=== PATIENT | female | born 1975 | race Caucasian/White ===

== ENCOUNTER 2019-02-23 16:12 | Emergency (ER) | payer MEDICAID ==
[~2019-02-23] VITALS: Ht 170.2 cm; Wt 88.5 kg
[2019-02-23 16:30] VITALS: BP 136/92
--- NOTE | 2019-02-23 16:52 | NUR ---
DENIES LEFT EAR PAIN.
--- NOTE | 2019-02-23 16:52 | NUR ---
C/O CLEAR PRODUCTIVE COUGH SINCE TUESDAY W/ INTERMITTENT LT EAR PAIN. TOOK THERA FLU W/O RELIEF ,AWAKE ,ALERT , AMBULATORY WITH STEADY GAIT , AFEBRILE , CBS , SCE. PMHX DENIES PREVOIUS ILLNESS.
--- NOTE | 2019-02-23 16:53 | NUR ---
SEFERINO BECERRA AT BEDSIDE.
[2019-02-23 17:29] VITALS: BP 132/89
--- NOTE | 2019-02-23 17:29 | NUR ---
Patient discharged with v/s stable. Written and verbal after care instructions given and explained REGARDING UPPER RESP INFECTION. Patient alert, oriented and verbalized understanding of instructions. Ambulatory with steady gait. All questions addressed prior to discharge. ID band removed. Patient advised to follow up with PMD. Rx of AZITHROMYCIN AND IBUPROFEN given. Patient educated on indication of medication including possible reaction and side effects. Opportunity to ask questions provided and answered. PT DISCHARGED BY DANIE TEJEDA
== END 2019-02-23 17:27 | disposition home or self-care (01) ==
LOC: MED 16:12
DX: J06.9 Acute upper respiratory infection, unspecified (principal); Z20.818 Contact with and (suspected) exposure to other bacterial communicable diseases
CPT/HCPCS: 99283

== ENCOUNTER 2020-07-22 18:25 | Emergency (ER) | payer MEDICAID ==
[~2020-07-22] VITALS: Ht 167.6 cm; Wt 76.2 kg
[2020-07-22 18:37] VITALS: BP 134/89
[2020-07-22 19:24] VITALS: BP 160/83
== END 2020-07-22 19:40 | disposition home or self-care (01) ==
LOC: MED 18:25
DX: R10.9 Unspecified abdominal pain (principal); L90.5 Scar conditions and fibrosis of skin; Z98.890 Other specified postprocedural states
CPT/HCPCS: 99281

== ENCOUNTER 2020-10-21 13:14 | Emergency (ER) | payer MEDICAID ==
[~2020-10-21] VITALS: Ht 167.6 cm; Wt 77.1 kg
[2020-10-21 13:19] VITALS: BP 127/93
--- NOTE | 2020-10-21 14:42 | NUR ---
45 YEAR OLD FEMALE COMPLAINS OF BILATERAL BREAST RASH X YESTERDAY. PT STATES RASH IS RED AND ITCHY. PT ALSO COMPLAINS OF VAGINAL DISCOMFORT X 3 DAYS AGO. PT STATES THAT VAGINAL DISCOMFORT ASSOCIATED WITH URINARY BURNING, YELLOW DISCHARGE. PMH - DENIES Addendum: 10/21/20 at 1508 by [facility] Patient reports vaginal discharge without pain or bleeding. States intermittent stinging pain, 2/10 upon peeing. Denies pain at this time. Denies fever, chills, SOB, chest pain. Reports calamine with minor relief. LMP: 09/21/20 Sx: C-sections, hernia repair
--- NOTE | 2020-10-21 15:00 | NUR ---
UA and culture swabs walked to lab, handed to CPT. Amrita
--- NOTE | 2020-10-21 15:00 | NUR ---
Female Side Seam Machine Operator accompanied female patient for Pelvic Exam.
[2020-10-21] MEDS ORDERED: DOXY-690 PO (15:45)
[2020-10-21] MEDS ORDERED: cefTRIAXone 1,000 MG in LIDOCAINE MPF 1% 2.1 ML IM ONE (15:45)
[2020-10-21] MEDS ORDERED: LIDOCAINE MPF 1% 5 ML ONE (16:24)
[2020-10-21] MEDS ORDERED: cefTRIAXone 1,000 MG VIAL ONE (16:24)
--- NOTE | 2020-10-21 16:30 | NUR ---
Patient discharged with v/s stable. Written and verbal after care instructions given and explained. Patient alert, oriented and verbalized understanding of instructions. Ambulatory with steady gait. All questions addressed prior to discharge. ID band removed. Patient advised to follow up with PMD. Rx of Doxycycline Hyclate given. Patient educated on indication of medication including possible reaction and side effects. Opportunity to ask questions provided and answered.
[2020-10-21 18:14] LABS: BILIRUBIN,URINE NEGATIVE (NEGATIVE); BLOOD, URINE TRACE-I (NEGATIVE); LEUKOCYTE ESTERASE ,URINE 2+ (NEGATIVE); NITRITE, URINE POSITIVE (NEGATIVE); PH,URINE 5.5 (5.0-9.0); UGLUCOSE NEGATIVE (NEGATIVE)
[2020-10-21 18:17] LABS: APPEARANCE,URINE CLOUDY (CLEAR); COLOR,URINE YELLOW (YELLOW); RBC,URINE 0-5 /HPF (0-5)
== END 2020-10-21 16:30 | disposition home or self-care (01) ==
LOC: MED 13:14
DX: N39.0 Urinary tract infection, site not specified (principal); L30.9 Dermatitis, unspecified; Z11.3 Encounter for screening for infections with a predominantly sexual mode of transmission
CPT/HCPCS: 36415; 81001; 87070; 87086; 87205; 87210; 87491; 96372; 99284; J0696; J2001

== ENCOUNTER 2020-11-01 08:25 | Emergency (ER) | payer MEDICAID ==
[~2020-11-01] VITALS: Ht 170.2 cm; Wt 78.0 kg
[~2020-11-01 08:25] MED LIST: DOXY-690 PO
[2020-11-01 08:28] VITALS: BP 118/82
--- NOTE | 2020-11-01 08:35 | NUR ---
Patient ambulated with steady gait to bed 7
--- NOTE | 2020-11-01 08:41 | NUR ---
45 Y/O FEMALE C/O LOWER ABD PAIN X1 WEEK AND PT STATES SHE HAS A "BUMP" TO LOWER ABD. THE PAIN WORSENS WITH MENSTRUAL CYCLE AND STATES "IT FLARES UP." PT STATES 07/14 PAIN. TENDER TO TOUCH. SKIN WARM AND DRY. MEDHX: , UTI NKA Addendum: 11/01/20 at 0844 by [email or web address] PT REPORTS NAUSEA/VOMITING/DIARRHEA PRIOR TO ARRIVAL
--- NOTE | 2020-11-01 08:43 | NUR ---
DR JONES AT BEDSIDE EXAMINING PT
--- NOTE | 2020-11-01 08:48 | NUR ---
ULTRASOUND AT BEDSIDE
[2020-11-01] MEDS ORDERED: KETOROLAC 60 MG/2 ML VIAL IM ONE (08:55)
[2020-11-01 09:57] LABS: APPEARANCE,URINE CLEAR (CLEAR); BILIRUBIN,URINE NEGATIVE (NEGATIVE); BLOOD, URINE NEGATIVE (NEGATIVE); COLOR,URINE YELLOW (YELLOW); LEUKOCYTE ESTERASE ,URINE NEGATIVE (NEGATIVE); NITRITE, URINE NEGATIVE (NEGATIVE); UGLUCOSE NEGATIVE (NEGATIVE)
[2020-11-01] MEDS ORDERED: IBUP-2213 PO ×2 (10:14→10:19)
[2020-11-01] MEDS ORDERED: ACET-8386 PO ×2 (10:14→10:19)
[2020-11-01 10:26] VITALS: BP 118/82
--- NOTE | 2020-11-01 10:26 | NUR ---
Patient discharged with v/s stable. Written and verbal after care instructions given and explained. Patient alert, oriented and verbalized understanding of instructions. Ambulatory with steady gait. All questions addressed prior to discharge. ID band removed. Patient advised to follow up with PMD. Rx of IBUPROFEN AND HYDROCODONE/ACETAMINOPHEN given. Patient educated on indication of medication including possible reaction and side effects. Opportunity to ask questions provided and answered.
== END 2020-11-01 10:26 | disposition home or self-care (01) ==
LOC: MED 08:25
DX: D25.9 Leiomyoma of uterus, unspecified (principal); Z79.899 Other long term (current) drug therapy; Z98.890 Other specified postprocedural states
CPT/HCPCS: 76830; 81003; 81025; 96372; 99284; J1885; Q0092

== ENCOUNTER 2020-12-15 10:37 | Emergency (ER) | payer MEDICAID ==
[~2020-12-15] VITALS: Ht 167.6 cm; Wt 79.4 kg
[~2020-12-15 10:37] MED LIST changes: +ACET-8386 PO; +IBUP-2213 PO
--- NOTE | 2020-12-15 11:02 | NUR ---
PT TAKEN TO ER BED 4.
--- NOTE | 2020-12-15 12:12 | NUR ---
MD BARROS AT BEDSIDE EVALUATING PATIENT.
--- NOTE | 2020-12-15 12:13 | NUR ---
45 Y/O FEMALE C/O DYSURIA, WHITE DISCHARGE AND FLANK PAIN 7/10 RADIATES TO LEFT SIDE X3 WEEKS. PT STATES +N/-V, DENIES FEVER/CHILLS. CLAIMS SHE DOES NOT VOID WHEN SHE FEELS THE URGE. DENIES HEMATURIA. PMH: CHRONIC UTI, HTN ALLERGIES: DENIES NO HOME MEDS
--- NOTE | 2020-12-15 12:13 | NUR ---
SEFERINO BARROS AT BEDSIDE ASSESSING PT
[2020-12-15] MEDS ORDERED: PYR100 PO (12:16)
[2020-12-15] MEDS ORDERED: ACET-10509 PO (12:16)
[2020-12-15] MEDS ORDERED: SULF-59 PO (12:16)
[2020-12-15] MEDS ORDERED: FLUC150T PO (12:17)
[2020-12-15 12:35] VITALS: BP 120/75
--- NOTE | 2020-12-15 12:35 | NUR ---
Patient discharged with v/s stable. Written and verbal after care instructions given and explained. Patient alert, oriented and verbalized understanding of instructions. Ambulatory with steady gait. All questions addressed prior to discharge. ID band removed. Patient advised to follow up with PMD. Rx of DIFLUCAN/BACTRIM DS/TYLENOL EXTRA STRENGTH/PYRIDIUM given. Patient educated on indication of medication including possible reaction and side effects. Opportunity to ask questions provided and answered.
== END 2020-12-15 12:35 | disposition home or self-care (01) ==
LOC: MED 10:37
DX: N39.0 Urinary tract infection, site not specified (principal); B37.9 Candidiasis, unspecified; Z79.899 Other long term (current) drug therapy
CPT/HCPCS: 81002; 81025; 99283

== ENCOUNTER 2021-02-11 15:40 | Emergency (ER) | payer MEDICAID ==
[~2021-02-11] VITALS: Ht 167.6 cm; Wt 68.0 kg
[~2021-02-11 15:40] MED LIST changes: +ACET-10509 PO; +FLUC150T PO; +PYR100 PO; +SULF-59 PO
[2021-02-11 15:57] VITALS: BP 154/103
[2021-02-11 17:01] LABS: BASOPHILS % (AUTO) 0.4 % (0.0-2.0); EOSINOPHILS % (AUTO) 0.6 % (0.0-4.0); HEMATOCRIT 42.5 % (36-48); HEMOGLOBIN 14.3 g/dL (12.0-16.0); LYMPHOCYTES # (AUTO) 1.5 K/uL (2.5-16.5); LYMPHOCYTES % (AUTO) 19.1 % (20.5-51.1); MEAN CORPUSCULAR HEMOGLOBIN 31 pg (27-31); MEAN CORPUSCULAR HGB CONC 34 g/dL (33-37); MEAN CORPUSCULAR VOLUME 92.9 fL (80-94); MONOCYTES # (AUTO) 0.5 K/uL (0.8-1.0); MONOCYTES % (AUTO) 6.1 % (1.7-9.3); NEUTROPHILS # (AUTO) 5.7 K/uL (1.8-7.7); NEUTROPHILS % (AUTO) 73.8 % (42.2-75.2); PLATELET COUNT (AUTO) 392 K/uL (140-450); RED BLOOD CELL COUNT(AUTO) 4.58 MIL/uL (4.20-5.40); RED CELL DISTRIBUTION WIDTH 13.9 % (11.6-13.7); WHITE BLOOD COUNT (AUTO) 7.7 K/uL (4.8-10.8)
[2021-02-11 17:35] LABS: ALBUMIN 3.7 g/dL (3.4-5.0); CREATININE 0.6 mg/dL (0.6-1.3); POTASSIUM 3.7 mmol/L (3.5-5.1); TOTAL BILIRUBIN 0.3 mg/dL (0.0-1.0)
[2021-02-11 17:41] LABS: ANION GAP 12.2 (8-16); CARBON DIOXIDE 25.5 mmol/L (21-32)
--- NOTE | 2021-02-11 17:54 | NUR ---
Female Residential Treatment Counselor accompanied female patient for Pelvic Exam. WET MOUNT AND CULTURE SWAB COLLECTED AND HANDED TO MAKEUP EDITOR
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
--- NOTE | 2021-02-11 18:01 | NUR ---
Patient appears to be resting comfortably in bed. Vital Signs within normal limits. Respirations even and unlabored.
[2021-02-11] MEDS ORDERED: FLUC150T PO (18:39)
[2021-02-11] MEDS ORDERED: PYR100 PO (18:39)
[2021-02-11] MEDS ORDERED: ACET-10509 PO (18:39)
[2021-02-11] MEDS ORDERED: SULF-59 PO (18:39)
[2021-02-11 19:01] VITALS: BP 142/80
--- NOTE | 2021-02-11 19:02 | NUR ---
Patient discharged with v/s stable. Written and verbal after care instructions given and explained. Patient alert, oriented and verbalized understanding of instructions. Ambulatory with steady gait. All questions addressed prior to discharge. ID band removed. Patient advised to follow up with PMD. Rx of BACTRIM, DIFLUCAN, AND PYRIDIUM given. Patient educated on indication of medication including possible reaction and side effects. Opportunity to ask questions provided and answered.
== END 2021-02-11 19:00 | disposition home or self-care (01) ==
LOC: MED 15:40
DX: N39.0 Urinary tract infection, site not specified (principal); I10 Essential (primary) hypertension; Z98.890 Other specified postprocedural states; Z79.899 Other long term (current) drug therapy; Z79.2 Long term (current) use of antibiotics; Z79.891 Long term (current) use of opiate analgesic; Z79.1 Long term (current) use of non-steroidal anti-inflammatories (NSAID)
CPT/HCPCS: 36415; 80053; 81002; 81025; 85025; 86592; 87070; 87210; 87491; 99284

== ENCOUNTER 2021-05-18 17:26 | Emergency (ER) | payer MEDICAID, OTHER ==
[~2021-05-18] VITALS: Ht 167.6 cm; Wt 71.2 kg
[2021-05-18 17:35] VITALS: BP 119/96
--- NOTE | 2021-05-18 17:42 | NUR ---
PT AMBULATED TO ER BED 4 WITH A STEADY GAIT.
--- NOTE | 2021-05-18 17:59 | NUR ---
45 Y/O FEMALE C/O UTI SYMPTOMS X2 DAYS, STATING TODAY ITS BEEN WORSENING. REPORTS TAKING IBUPROFEN WITH MILD RELIEF, DENIES FEVERS, CHILLS. DENIES HEMATURIA, DISCHARGE. DENIES PMH NKA
[2021-05-18] MEDS ORDERED: PYR100 PO (18:46)
[2021-05-18] MEDS ORDERED: IBUP-2213 PO (18:46)
[2021-05-18] MEDS ORDERED: CEPH-588 PO (18:46)
[2021-05-18 18:52] LABS: APPEARANCE,URINE CLEAR (CLEAR); BILIRUBIN,URINE NEGATIVE (NEGATIVE); BLOOD, URINE TRACE-I (NEGATIVE); COLOR,URINE YELLOW (YELLOW); LEUKOCYTE ESTERASE ,URINE NEGATIVE (NEGATIVE); NITRITE, URINE NEGATIVE (NEGATIVE); UGLUCOSE NEGATIVE (NEGATIVE)
[2021-05-18 19:01] VITALS: BP 119/96
--- NOTE | 2021-05-18 19:02 | NUR ---
Patient discharged with v/s stable. Written and verbal after care instructions given FOR URINARY TRACT INFECTION and explained. Patient alert, oriented and verbalized understanding of instructions. Ambulatory with steady gait. All questions addressed prior to discharge. ID band removed. Patient advised to follow up with PMD. Rx of KEFLEX, IBUPROFEN, AND PYRIDIUM given. Patient educated on indication of medication including possible reaction and side effects. Opportunity to ask questions provided and answered.
[2021-05-18 19:10] LABS: RBC,URINE 0-5 /HPF (0-5); WBC,URINE 0-5 /HPF (0-5)
== END 2021-05-18 19:01 | disposition home or self-care (01) ==
LOC: MED 17:26
DX: N39.0 Urinary tract infection, site not specified (principal); I10 Essential (primary) hypertension; Z79.899 Other long term (current) drug therapy
CPT/HCPCS: 81001; 99283

== ENCOUNTER 2021-07-09 20:22 | Emergency (ER) | payer OTHER ==
[~2021-07-09] VITALS: Ht 167.6 cm; Wt 69.1 kg
[~2021-07-09 20:22] MED LIST changes: +CEPH-588 PO
[2021-07-09 20:37] VITALS: BP 112/79
--- NOTE | 2021-07-09 20:42 | NUR ---
pt sent to lobby.
--- NOTE | 2021-07-09 21:12 | NUR ---
PT TAKEN TO XRAY
--- NOTE | 2021-07-09 21:20 | NUR ---
PT RETURN FROM RAD
--- NOTE | 2021-07-09 21:57 | NUR ---
PT TAKEN TO BED 7
--- NOTE | 2021-07-09 22:16 | NUR ---
Dr. Corral examining patient.
[2021-07-09] MEDS ORDERED: LIDOCAINE 2% 1000 MG/50 ML VIAL INJ ONE (22:30)
--- NOTE | 2021-07-09 23:44 | NUR ---
PT AMBULATED TO BATHROOM
--- NOTE | 2021-07-09 23:45 | NUR ---
45 Y/O F BIB SELF FOR L KNEE PAIN X 3 WEEKS . PT STATES 10/10 PAIN . PT HAD A PREVIOUS KNEE SURGERY BUT HAS BEEN AGGRAVATED AT WORK DUE TO HIGH PHYSICAL ACTIVITY. PT HAS BEEN TAKING TYLENOL AND IBRUPROFEN FOR PAIN. PT STATES PAIN WAS TOO MUCH SHE HAD TO LEAVE WORK. DENIES N/V/D; SKIN IS PINK/WARM/DRY; AAOX4 WITH EVEN AND STEADY GAIT; LUNGS CLEAR BL; HR EVEN AND REGULAR; PT DENIES ANY FEVER, CP, SOB, OR COUGH AT THIS TIME; VSS; PATIENT POSITIONED FOR COMFORT; HOB ELEVATED; BEDRAILS UP X2; BED DOWN.
--- NOTE | 2021-07-10 00:28 | NUR ---
HERMILO IN ROOM FOR PROCEDURE
[2021-07-10] MEDS ORDERED: IBUP-2218 PO (00:37)
== END 2021-07-10 00:58 | disposition home or self-care (01) ==
LOC: MED 20:22
DX: M25.462 Effusion, left knee (principal); I10 Essential (primary) hypertension; Z79.1 Long term (current) use of non-steroidal anti-inflammatories (NSAID); Z79.899 Other long term (current) drug therapy; Z79.2 Long term (current) use of antibiotics; Z79.891 Long term (current) use of opiate analgesic
CPT/HCPCS: 20610; 73562; 99283; J2001

== ENCOUNTER 2021-09-03 06:30 | Emergency (ER) | payer OTHER ==
[~2021-09-03] VITALS: Ht 170.2 cm; Wt 68.0 kg
[~2021-09-03 06:30] MED LIST changes: +IBUP-2218 PO
[2021-09-03 06:39] VITALS: BP 141/56
--- NOTE | 2021-09-03 06:50 | NUR ---
TO BED 12 WITH C/O UTI SX X 1 WEEK, PMHx: DENIES
--- NOTE | 2021-09-03 06:50 | NUR ---
TO BED 12 FROM TRIAGE. PT UNABLE TO PROVIDE URINE SAMPLE AT THIS TIME
--- NOTE | 2021-09-03 06:52 | NUR ---
VOIDED VERY SMALL AMT OF URINE. DIPPED AND HCG IN PROGRESS
--- NOTE | 2021-09-03 07:07 | NUR ---
DR. JONES AT BEDSIDE EVALUATING PT.
[2021-09-03] MEDS ORDERED: ONDA8TAB87 PO (07:17)
[2021-09-03] MEDS ORDERED: IBUP-2213 PO (07:17)
[2021-09-03] MEDS ORDERED: CIPR500T4 PO (07:17)
[2021-09-03] MEDS ORDERED: PHEN-1877 PO (07:17)
[2021-09-03 07:20] VITALS: BP 132/68
--- NOTE | 2021-09-03 07:20 | NUR ---
received report from manager night rn. patient calm and resting. urine collected for urine culture.
--- NOTE | 2021-09-03 07:22 | NUR ---
Patient discharged with v/s stable. Written and verbal after care instructions given and explained. Patient alert, oriented and verbalized understanding of instructions. Ambulatory with steady gait. All questions addressed prior to discharge. ID band removed. Patient advised to follow up with PMD. Rx of ibuprofen, cipro, pyridium, and zofran given. Patient educated on indication of medication including possible reaction and side effects. Opportunity to ask questions provided and answered.
== END 2021-09-03 07:21 | disposition home or self-care (01) ==
LOC: MED 06:30
DX: N39.0 Urinary tract infection, site not specified (principal); R11.2 Nausea with vomiting, unspecified; Z79.899 Other long term (current) drug therapy; Z98.890 Other specified postprocedural states
CPT/HCPCS: 81002; 81025; 87086; 99283

== ENCOUNTER 2021-10-03 19:59 | Emergency (ER) | payer OTHER ==
[~2021-10-03] VITALS: Ht 170.2 cm; Wt 68.0 kg
[~2021-10-03 19:59] MED LIST changes: +CIPR500T4 PO; +ONDA8TAB87 PO; +PHEN-1877 PO
[2021-10-03 20:02] VITALS: BP 122/73
[2021-10-03] MEDS ORDERED: IBUPROFEN 600 MG TAB PO ONE (20:10)
--- NOTE | 2021-10-03 20:18 | NUR ---
Patient taken to bed 6 via wheel chair.
--- NOTE | 2021-10-03 20:20 | NUR ---
Urine sample collected and sent to lab.
--- NOTE | 2021-10-03 20:25 | NUR ---
X-Ray at bedside.
[2021-10-03 20:26] LABS: APPEARANCE,URINE CLEAR (CLEAR); BILIRUBIN,URINE 1+ (NEGATIVE); BLOOD, URINE TRACE-I (NEGATIVE); COLOR,URINE YELLOW (YELLOW); LEUKOCYTE ESTERASE ,URINE NEGATIVE (NEGATIVE); NITRITE, URINE NEGATIVE (NEGATIVE); UGLUCOSE NEGATIVE (NEGATIVE)
--- NOTE | 2021-10-03 20:31 | NUR ---
46 bib by mom for rt big toe pain from fall x 2 hours. pt stepped in hole and hit cement. pt denies hitting head. only hit rt toe and left knee. pt states it wa throbbin and now feels achy. pt denies any bleeding. ; PATIENT STATES PAIN OF 8/10 AT THIS TIME; pt denies pmh pt denies allergies DENIES N/V/D; SKIN IS PINK/WARM/DRY; AAOX4 WITH EVEN GAIT WITH COMPROMISED RT TOE. LUNGS CLEAR BL; HR EVEN AND REGULAR; PT DENIES ANY FEVER, CP, SOB, OR COUGH AT THIS TIME VSS; PATIENT POSITIONED FOR COMFORT; HOB ELEVATED; BEDRAILS UP X2;
[2021-10-03 20:42] LABS: RBC,URINE 0-5 /HPF (0-5)
[2021-10-03] MEDS ORDERED: PYR100 PO (20:56)
[2021-10-03] MEDS ORDERED: NITR100C7 PO (20:56)
[2021-10-03] MEDS ORDERED: IBUP-1842 PO (20:56)
--- NOTE | 2021-10-03 20:58 | NUR ---
Dr. Brandt explained results and treatment plans.
[2021-10-03 21:19] VITALS: BP 124/73
--- NOTE | 2021-10-03 21:19 | NUR ---
Patient discharged with v/s stable. Written and verbal after care instructions given and explained for foot contusion. Patient alert, oriented and verbalized understanding of instructions. Ambulatory with steady gait. All questions addressed prior to discharge. ID band removed. Patient advised to follow up with PMD. Rx of Ibruprofen, Macrobid and Pyridium given. Patient educated on indication of medication including possible reaction and side effects. Opportunity to ask questions provided and answered.
--- NOTE | 2021-10-03 21:26 | NUR ---
The patient's care was reviewed and supervised by Ashlee Jimenez RN.
== END 2021-10-03 21:19 | disposition home or self-care (01) ==
LOC: MED 19:59
DX: S90.111A Contusion of right great toe without damage to nail, initial encounter (principal); N39.0 Urinary tract infection, site not specified; X58.XXXA Exposure to other specified factors, initial encounter; Y93.89 Activity, other specified; Y92.89 Other specified places as the place of occurrence of the external cause; Y99.8 Other external cause status
CPT/HCPCS: 73660; 81001; 81025; 87086; 99284

== ENCOUNTER 2021-11-08 23:34 | Emergency (ER) | payer OTHER ==
[~2021-11-08] VITALS: Ht 170.2 cm; Wt 70.3 kg
[~2021-11-08 23:34] MED LIST changes: +IBUP-1842 PO; +NITR100C7 PO
[2021-11-09] MEDS ORDERED: PHEN-1877 PO (00:02)
[2021-11-09] MEDS ORDERED: CEPH-588 PO (00:02)
[2021-11-09 00:14] VITALS: BP 138/84
--- NOTE | 2021-11-09 00:18 | NUR ---
TO LOBBY FOLLOWING TRIAGE. UA WAS OBTAINED
--- NOTE | 2021-11-09 00:24 | NUR ---
Patient discharged with v/s stable. Written and verbal after care instructions given and explained. Patient alert, oriented and verbalized understanding of instructions. Ambulatory with steady gait. All questions addressed prior to discharge. ID band removed. Patient advised to follow up with PMD. Rx of PYRIDUIM, KEFLEX given. Patient educated on indication of medication including possible reaction and side effects. Opportunity to ask questions provided and answered.
[2021-11-09 00:48] VITALS: BP 138/84
--- NOTE | 2021-11-09 00:48 | NUR ---
Patient discharged with v/s stable. Written and verbal after care instructions given DYSURIA and explained. Patient alert, oriented and verbalized understanding of instructions. with steady gait. All questions addressed prior to discharge. ID band removed. Patient advised to follow up with PMD. Rx of KEFLEX, AND PYRIDIUM given.
== END 2021-11-09 00:48 | disposition home or self-care (01) ==
LOC: MED 23:34
DX: N39.0 Urinary tract infection, site not specified (principal); I10 Essential (primary) hypertension; Z79.899 Other long term (current) drug therapy
CPT/HCPCS: 81002; 81025; 99283

== ENCOUNTER 2021-11-25 01:40 | Emergency (ER) | payer OTHER ==
[~2021-11-25] VITALS: Ht 170.2 cm; Wt 70.8 kg
[2021-11-25 01:56] VITALS: BP 134/68
[2021-11-25] MEDS ORDERED: EMTRICITABINE/TENOFOVIR 200-300MG 1 TAB PO SCH (02:30)
[2021-11-25] MEDS ORDERED: EMTR1TAB12 PO (04:02)
--- NOTE | 2021-11-25 04:10 | NUR ---
LEFT WITHOUT RECEIVING DT, AND ACI.
[2021-11-26 08:08] LABS: HEPATITIS A ANTIBODY IGM Negative (Negative); HEPATITIS B CORE AB TOTAL Negative (Negative); HEPATITIS B SURFACE ANTIBODY Non Reactive (.); HEPATITIS B SURFACE ANTIGEN Negative (Negative)
== END 2021-11-25 04:10 | disposition home or self-care (01) ==
LOC: MED 01:40
DX: L29.9 Pruritus, unspecified (principal); I10 Essential (primary) hypertension; Z79.899 Other long term (current) drug therapy; W46.1XXA Contact with contaminated hypodermic needle, initial encounter; Y93.89 Activity, other specified; Y92.89 Other specified places as the place of occurrence of the external cause; Y99.8 Other external cause status
CPT/HCPCS: 36415; 86704; 86706; 86708; 86709; 86803; 87340; 90715; 99283

== ENCOUNTER 2022-02-08 11:10 | Emergency (ER) | payer OTHER ==
[~2022-02-08] VITALS: Ht 170.2 cm; Wt 78.5 kg
[~2022-02-08 11:10] MED LIST changes: +EMTR1TAB12 PO
[2022-02-08 11:26] VITALS: BP 112/71
--- NOTE | 2022-02-08 11:46 | NUR ---
CURTIS AND FLU SWABS COLLECTED
[2022-02-08] MEDS ORDERED: CEPH-588 PO (13:58)
[2022-02-08] MEDS ORDERED: PROM118S5 PO (13:58)
[2022-02-08] MEDS ORDERED: PYR100 PO (13:58)
[2022-02-08] MEDS ORDERED: TAM75 PO (13:59)
--- NOTE | 2022-02-08 14:10 | NUR ---
Patient discharged with v/s stable. Written and verbal after care instructions given and explained. Patient alert, oriented and verbalized understanding of instructions. Ambulatory with steady gait. All questions addressed prior to discharge. ID band removed. Patient advised to follow up with PMD. Rx of KEFLEX, PYRIDIUM given. Patient educated on indication of medication including possible reaction and side effects. Opportunity to ask questions provided and answered.
[2022-02-08 17:11] LABS: APPEARANCE,URINE SL CLOUDY (CLEAR); BILIRUBIN,URINE NEGATIVE (NEGATIVE); BLOOD, URINE NEGATIVE (NEGATIVE); COLOR,URINE YELLOW (YELLOW); LEUKOCYTE ESTERASE ,URINE 2+ (NEGATIVE); NITRITE, URINE NEGATIVE (NEGATIVE); PH,URINE 6.5 (5.0-9.0); UGLUCOSE NEGATIVE (NEGATIVE)
[2022-02-08 17:29] LABS: OTHER CASTS, URINE None Seen /LPF (None Seen); RBC,URINE 0-5 /HPF (0-5)
== END 2022-02-08 14:09 | disposition home or self-care (01) ==
LOC: MED 11:10
DX: J10.1 Influenza due to other identified influenza virus with other respiratory manifestations (principal); Z20.822 Contact with and (suspected) exposure to COVID-19; N39.0 Urinary tract infection, site not specified; I10 Essential (primary) hypertension; Z79.899 Other long term (current) drug therapy
CPT/HCPCS: 81001; 81025; 87086; 99283

== ENCOUNTER 2022-04-17 19:49 | Emergency (ER) | payer BC, OTHER ==
[~2022-04-17] VITALS: Ht 170.2 cm; Wt 80.7 kg
[~2022-04-17 19:49] MED LIST changes: -ACET-8386 PO; +ACET-8905 PO; +PROM118S5 PO; +TAM75 PO
[2022-04-17 20:00] VITALS: BP 109/55
--- NOTE | 2022-04-17 20:03 | NUR ---
TO LOBBY A/W BED AMBULATORY
--- NOTE | 2022-04-17 20:24 | NUR ---
PT TO BED #12
--- NOTE | 2022-04-17 20:40 | NUR ---
UA TO LAB
[2022-04-17 21:00] LABS: APPEARANCE,URINE CLEAR (CLEAR); BILIRUBIN,URINE NEGATIVE (NEGATIVE); BLOOD, URINE NEGATIVE (NEGATIVE); COLOR,URINE YELLOW (YELLOW); LEUKOCYTE ESTERASE ,URINE NEGATIVE (NEGATIVE); NITRITE, URINE NEGATIVE (NEGATIVE); UGLUCOSE NEGATIVE (NEGATIVE)
[2022-04-17] MEDS ORDERED: IBUP-2218 PO (21:24)
[2022-04-17] MEDS ORDERED: KETOROLAC 15 MG/ML VIAL IM ONE (21:25)
[2022-04-17 22:05] VITALS: BP 109/55
== END 2022-04-17 22:05 | disposition home or self-care (01) ==
LOC: MED 19:49
DX: R10.30 Lower abdominal pain, unspecified (principal); R30.0 Dysuria; I10 Essential (primary) hypertension; Z79.899 Other long term (current) drug therapy; Z98.890 Other specified postprocedural states
CPT/HCPCS: 81003; 81025; 86703; 96372; 99283; J1885

== ENCOUNTER 2022-06-16 16:48 | Emergency (ER) | payer BC, OTHER ==
[~2022-06-16] VITALS: Ht 170.2 cm; Wt 81.6 kg
[2022-06-16 17:54] VITALS: BP 130/67
--- NOTE | 2022-06-16 19:19 | NUR ---
urine collected and taken to lab.
[2022-06-16 19:23] LABS: APPEARANCE,URINE CLEAR (CLEAR); BILIRUBIN,URINE NEGATIVE (NEGATIVE); BLOOD, URINE NEGATIVE (NEGATIVE); COLOR,URINE YELLOW (YELLOW); LEUKOCYTE ESTERASE ,URINE NEGATIVE (NEGATIVE); NITRITE, URINE NEGATIVE (NEGATIVE); UGLUCOSE NEGATIVE (NEGATIVE)
[2022-06-16] MEDS ORDERED: PHEN-1877 PO (19:34)
--- NOTE | 2022-06-16 19:43 | NUR ---
Patient discharged with v/s stable. Written and verbal after care instructions given and explained. Patient verbalized understanding. Ambulatory with steady gait. All questions addressed prior to discharge. Advised to follow up with PMD.
== END 2022-06-16 18:30 | disposition home or self-care (01) ==
LOC: MED 16:48
DX: R30.0 Dysuria (principal); R10.30 Lower abdominal pain, unspecified; I10 Essential (primary) hypertension; Z79.899 Other long term (current) drug therapy; Z79.2 Long term (current) use of antibiotics; Z79.1 Long term (current) use of non-steroidal anti-inflammatories (NSAID)
CPT/HCPCS: 81003; 81025; 99283

== ENCOUNTER 2022-07-18 09:04 | Emergency (ER) | payer BC, OTHER ==
[~2022-07-18] VITALS: Ht 170.2 cm; Wt 87.1 kg
[2022-07-18 09:08] VITALS: BP 134/68
--- NOTE | 2022-07-18 09:27 | NUR ---
AMBULATED TO BED IN NO DISTRES
[2022-07-18 09:52] LABS: APPEARANCE,URINE CLEAR (CLEAR); BILIRUBIN,URINE NEGATIVE (NEGATIVE); BLOOD, URINE NEGATIVE (NEGATIVE); COLOR,URINE YELLOW (YELLOW); LEUKOCYTE ESTERASE ,URINE NEGATIVE (NEGATIVE); NITRITE, URINE NEGATIVE (NEGATIVE); UGLUCOSE NEGATIVE (NEGATIVE)
[2022-07-18 09:58] LABS: BASOPHILS % (AUTO) 0.7 % (0.0-2.0); EOSINOPHILS # (AUTO) 0.2 K/uL (0-0.4); EOSINOPHILS % (AUTO) 2.3 % (0.0-4.0); HEMATOCRIT 36.4 % (36-48); HEMOGLOBIN 12.2 g/dL (12.0-16.0); LYMPHOCYTES # (AUTO) 1.6 K/uL (2.5-16.5); MEAN CORPUSCULAR HEMOGLOBIN 31 pg (27-31); MEAN CORPUSCULAR HGB CONC 34 g/dL (33-37); MEAN CORPUSCULAR VOLUME 91.7 fL (80-94); MONOCYTES # (AUTO) 0.7 K/uL (0.8-1.0); MONOCYTES % (AUTO) 8.9 % (1.7-9.3); NEUTROPHILS # (AUTO) 4.9 K/uL (1.8-7.7); NEUTROPHILS % (AUTO) 66.1 % (42.2-75.2); PLATELET COUNT (AUTO) 378 K/uL (140-450); RED BLOOD CELL COUNT(AUTO) 3.98 MIL/uL (4.20-5.40); RED CELL DISTRIBUTION WIDTH 13.5 % (11.6-13.7); WHITE BLOOD COUNT (AUTO) 7.4 K/uL (4.8-10.8)
[2022-07-18 10:10] LABS: CARBON DIOXIDE 25.8 mmol/L (21-32); CREATININE 0.5 mg/dL (0.6-1.3); POTASSIUM 3.8 mmol/L (3.5-5.1)
[2022-07-18] MEDS ORDERED: LIDOCAINE 5% 1 EA PATCH TP ONE (10:45)
[2022-07-18] MEDS ORDERED: KETOROLAC 30 MG/ML VIAL IVP ONE (10:45)
--- NOTE | 2022-07-18 11:00 | NUR ---
pt sleeping, no ac distress, o2 sat 98 % ra, sr up times 2
[2022-07-18] MEDS ORDERED: LID5T TP (12:56)
[2022-07-18] MEDS ORDERED: NAPR-54 PO (12:56)
[2022-07-18] MEDS ORDERED: METH-1681 PO (12:56)
[2022-07-18 13:40] VITALS: BP 136/70
== END 2022-07-18 13:37 | disposition home or self-care (01) ==
LOC: MED 09:04
DX: K44.9 Diaphragmatic hernia without obstruction or gangrene (principal); K57.90 Diverticulosis of intestine, part unspecified, without perforation or abscess without bleeding; N28.1 Cyst of kidney, acquired; R19.03 Right lower quadrant abdominal swelling, mass and lump; Z79.899 Other long term (current) drug therapy
CPT/HCPCS: 36415; 74177; 80048; 81003; 81025; 85025; 96374; 99285; J1885; Q9967

== ENCOUNTER 2022-10-11 13:33 | Emergency (ER) | payer BC, MEDICAID, OTHER ==
[~2022-10-11] VITALS: Ht 170.2 cm; Wt 90.7 kg
[~2022-10-11 13:33] MED LIST changes: +LID5T TP; +METH-1681 PO; +NAPR-54 PO
[2022-10-11 13:43] VITALS: BP 113/66; PULSE 97; RESP 16; TEMP 97.1; O2SAT 97
--- NOTE | 2022-10-11 13:48 | NUR ---
PAINFUL URINATION, LOW BACK PAIN, STOMACH ACHE, SUBJECTIVE FEVERS X 2 WEEKS. PATIENT DOES HAVE MULTIPLE HISTORIES OF UTI. PMH: HTN MEDS: LISINOPRIL
[2022-10-11] MEDS ORDERED: NITR100C7 PO (15:23)
[2022-10-11] MEDS ORDERED: METH-1681 PO (15:23)
[2022-10-11] MEDS ORDERED: NAPR-54 PO (15:24)
[2022-10-11 15:50] VITALS: BP 111/66; PULSE 88; RESP 16; TEMP 97.8; O2SAT 98
--- NOTE | 2022-10-11 15:50 | NUR ---
Patient discharged with v/s stable. Written and verbal after care instructions FOR DYSURIA given and explained. Patient alert, oriented and verbalized understanding of instructions. Ambulatory with steady gait. All questions addressed prior to discharge. ID band removed. Patient advised to follow up with PMD. Rx of ROBAXIN,MACROBID AND NAPROXEN given. Opportunity to ask questions provided and answered.
== END 2022-10-11 15:50 | disposition home or self-care (01) ==
LOC: MED 13:33
DX: R30.0 Dysuria (principal); R35.0 Frequency of micturition; R10.30 Lower abdominal pain, unspecified; I10 Essential (primary) hypertension; Z79.899 Other long term (current) drug therapy
CPT/HCPCS: 81002; 81025; 99283

== ENCOUNTER 2023-02-25 08:14 | Emergency (ER) | payer SELFPAY ==
[~2023-02-25] VITALS: Ht 170.2 cm; Wt 95.3 kg
[2023-02-25 08:36] VITALS: BP 136/72; PULSE 72; RESP 15; TEMP 97.3; O2SAT 96
[2023-02-25 09:24] LABS: BASOPHILS % (AUTO) 0.6 % (0.0-2.0); EOSINOPHILS # (AUTO) 0.2 K/uL (0-0.4); EOSINOPHILS % (AUTO) 2.4 % (0.0-4.0); HEMATOCRIT 38.2 % (36-48); HEMOGLOBIN 12.6 g/dL (12.0-16.0); LYMPHOCYTES # (AUTO) 1.4 K/uL (2.5-16.5); LYMPHOCYTES % (AUTO) 21.4 % (20.5-51.1); MEAN CORPUSCULAR HEMOGLOBIN 30 pg (27-31); MEAN CORPUSCULAR HGB CONC 33 g/dL (33-37); MEAN CORPUSCULAR VOLUME 89.3 fL (80-94); MONOCYTES # (AUTO) 0.7 K/uL (0.8-1.0); MONOCYTES % (AUTO) 10.1 % (1.7-9.3); NEUTROPHILS # (AUTO) 4.4 K/uL (1.8-7.7); NEUTROPHILS % (AUTO) 65.5 % (42.2-75.2); PLATELET COUNT (AUTO) 399 K/uL (140-450); RED BLOOD CELL COUNT(AUTO) 4.27 MIL/uL (4.20-5.40); WHITE BLOOD COUNT (AUTO) 6.7 K/uL (4.8-10.8)
[2023-02-25 09:25] LABS: APPEARANCE,URINE SL CLOUDY (CLEAR); BILIRUBIN,URINE NEGATIVE (NEGATIVE); BLOOD, URINE TRACE-I (NEGATIVE); COLOR,URINE YELLOW (YELLOW); LEUKOCYTE ESTERASE ,URINE NEGATIVE (NEGATIVE); NITRITE, URINE NEGATIVE (NEGATIVE); PROTEIN,URINE NEGATIVE (NEGATIVE); UGLUCOSE NEGATIVE (NEGATIVE); UROBILINOGEN,URINE 0.2 EU/dL (0.2 - 1)
[2023-02-25 09:40] LABS: ANION GAP 9.3 (8-16); CALCIUM 8.5 mg/dL (8.5-10.1); CREATININE 0.6 mg/dL (0.6-1.3); POTASSIUM 4.3 mmol/L (3.5-5.1)
[2023-02-25 09:44] LABS: BACTERIA,URINE 10-30 (MOD) /HPF (None Seen); RBC,URINE 0-5 /HPF (0-5); SQUAMOUS EPITHELIAL CELL,UR 4-10 (MOD) /LPF (0-3 (FEW)); WBC,URINE 0-5 /HPF (0-5)
[2023-02-25 09:47] LABS: ALBUMIN 3.3 g/dL (3.4-5.0); BILIRUBIN,DIRECT 0.1 mg/dL (0.0-0.3); TOTAL BILIRUBIN 0.3 mg/dL (0.0-1.0); TOTAL PROTEIN, SERUM 6.9 g/dL (6.4-8.2)
[2023-02-25 11:41] VITALS: BP 132/73; PULSE 63; RESP 18; TEMP 97.5; O2SAT 100
== END 2023-02-25 11:37 | disposition home or self-care (01) ==
LOC: MED 08:14
DX: R19.09 Other intra-abdominal and pelvic swelling, mass and lump (principal); Z79.899 Other long term (current) drug therapy
CPT/HCPCS: 36415; 80048; 80076; 81001; 81025; 83690; 84703; 85025; 87086; 99285; Q9967

== ENCOUNTER 2023-03-28 13:16 | Emergency (ER) | payer SELFPAY ==
[~2023-03-28] VITALS: Ht 172.7 cm; Wt 74.8 kg
[2023-03-28 14:20] VITALS: BP 155/97; PULSE 76; RESP 17; TEMP 97.4; O2SAT 98
[2023-03-28] MEDS ORDERED: TRANEXAMIC ACID 1,000 MG/10 ML VIAL MC ONE (15:40)
[2023-03-28 16:00] VITALS: O2SAT 98
[2023-03-28 16:05] VITALS: BP 155/97; PULSE 76; RESP 17; TEMP 97.4
[2023-03-28 16:32] LABS: BASOPHILS # (AUTO) 0.1 K/uL (0.00-0.22); EOSINOPHILS # (AUTO) 0.1 K/uL (0-0.4); EOSINOPHILS % (AUTO) 1.7 % (0.0-4.0); HEMATOCRIT 36.2 % (36-48); HEMOGLOBIN 12.3 g/dL (12.0-16.0); LYMPHOCYTES # (AUTO) 1.7 K/uL (2.5-16.5); LYMPHOCYTES % (AUTO) 21.7 % (20.5-51.1); MEAN CORPUSCULAR HEMOGLOBIN 30 pg (27-31); MEAN CORPUSCULAR HGB CONC 34 g/dL (33-37); MEAN CORPUSCULAR VOLUME 88.6 fL (80-94); MONOCYTES # (AUTO) 0.8 K/uL (0.8-1.0); MONOCYTES % (AUTO) 9.9 % (1.7-9.3); NEUTROPHILS # (AUTO) 5.1 K/uL (1.8-7.7); NEUTROPHILS % (AUTO) 65.7 % (42.2-75.2); PLATELET COUNT (AUTO) 433 K/uL (140-450); RED BLOOD CELL COUNT(AUTO) 4.09 MIL/uL (4.20-5.40); RED CELL DISTRIBUTION WIDTH 14.5 % (11.6-13.7); WHITE BLOOD COUNT (AUTO) 7.8 K/uL (4.8-10.8)
[2023-03-28 16:53] LABS: ANION GAP 11.4 (8-16); CALCIUM 8.5 mg/dL (8.5-10.1); CARBON DIOXIDE 26.5 mmol/L (21-32); CREATININE 0.6 mg/dL (0.6-1.3); POTASSIUM 3.9 mmol/L (3.5-5.1)
[2023-03-28] MEDS ORDERED: TRANEXAMIC ACID 1,000 MG/10 ML VIAL ONE (17:28)
[2023-03-28] MEDS ORDERED: LIDOCAINE/EPI 1% 1:100000 20 ML VIAL INJ ONE (18:45)
[2023-03-28 19:00] VITALS: O2SAT 98
[2023-03-28] MEDS ORDERED: BACITRACIN OINT 500 UNITS/GM PKT TP ONE (19:30)
== END 2023-03-28 19:56 | disposition home or self-care (01) ==
LOC: MED 13:16
DX: S31.114A Laceration without foreign body of abdominal wall, left lower quadrant without penetration into peritoneal cavity, initial encounter (principal); I10 Essential (primary) hypertension; Z79.899 Other long term (current) drug therapy; X58.XXXA Exposure to other specified factors, initial encounter; Y93.89 Activity, other specified; Y92.89 Other specified places as the place of occurrence of the external cause; Y99.8 Other external cause status
CPT/HCPCS: 12001; 36415; 74174; 80048; 81002; 81025; 84703; 85025; 99285; J2001; J3490; Q9967

== ENCOUNTER 2023-04-11 09:30 | Emergency (ER) | payer MEDICAID ==
[~2023-04-11] VITALS: Ht 170.2 cm; Wt 95.3 kg
[2023-04-11 09:35] VITALS: BP 126/75; PULSE 77; RESP 15; TEMP 97.1; O2SAT 97
== END 2023-04-11 12:27 | disposition home or self-care (01) ==
LOC: MED 09:30
DX: S31.119D Laceration without foreign body of abdominal wall, unspecified quadrant without penetration into peritoneal cavity, subsequent encounter (principal); Z48.02 Encounter for removal of sutures; I10 Essential (primary) hypertension; Z79.899 Other long term (current) drug therapy; Z79.2 Long term (current) use of antibiotics; Z79.1 Long term (current) use of non-steroidal anti-inflammatories (NSAID); X58.XXXD Exposure to other specified factors, subsequent encounter
CPT/HCPCS: 99281

== ENCOUNTER 2023-05-27 11:48 | Emergency (ER) | payer MEDICAID ==
[~2023-05-27] VITALS: Ht 170.2 cm; Wt 101.6 kg
[2023-05-27 12:05] VITALS: BP 119/83; PULSE 91; RESP 18; TEMP 98.1; O2SAT 98
[2023-05-27] MEDS: MORPHINE SULFATE 4 MG/ML SYR IM ONE (12:50)
[2023-05-27] MEDS ORDERED: ACET-503 PO ×2 (12:55→15:44)
[2023-05-27 13:05] VITALS: BP 142/90; PULSE 79; RESP 16; O2SAT 99
[2023-05-27] MEDS ORDERED: IBUP-2213 PO (15:44)
== END 2023-05-27 13:06 | disposition home or self-care (01) ==
LOC: MED 11:48
DX: R19.00 Intra-abdominal and pelvic swelling, mass and lump, unspecified site (principal); I10 Essential (primary) hypertension; Z98.890 Other specified postprocedural states; Z79.899 Other long term (current) drug therapy
CPT/HCPCS: 81002; 81025; 96372; 99283; J2270

== ENCOUNTER 2023-07-19 11:49 | Emergency (ER) | payer MEDICAID ==
[~2023-07-19] VITALS: Ht 170.2 cm; Wt 101.8 kg
[~2023-07-19 11:49] MED LIST changes: +ACET-503 PO; +NAPR-337 PO; -NAPR-54 PO
[2023-07-19 12:11] VITALS: BP 118/75; PULSE 90; RESP 16; TEMP 98; O2SAT 97
[2023-07-19] MEDS ORDERED: ACET-8905 PO (14:13)
[2023-07-19] MEDS: MORPHINE SULFATE 4 MG/ML SYR IM ONE (14:19)
[2023-07-19 15:42] VITALS: BP 125/83; PULSE 64; RESP 18; TEMP 98; O2SAT 98
== END 2023-07-19 15:42 | disposition home or self-care (01) ==
LOC: MED 11:49
DX: N80.9 Endometriosis, unspecified (principal); R19.09 Other intra-abdominal and pelvic swelling, mass and lump; Z79.899 Other long term (current) drug therapy
CPT/HCPCS: 81025; 96372; 99283; J2270